=== PATIENT | female | born 1965 | race Caucasian/White ===

== ENCOUNTER 2018-04-21 05:00 | Inpatient (IN) ==
[2018-04-21] MEDS ORDERED: Bisacodyl 10 MG Supp RECTAL PRN (12:57)
[2018-04-21] MEDS ORDERED: Senna/Docusate Sodium 8.6/50 MG Tablet PO PRN (12:57)
[2018-04-21] MEDS ORDERED: Aluminum/Magnesium/Simethacone Susp 30 ML UDC PO PRN (12:57)
[2018-04-21 14:33] LABS: Hematocrit 36.3 % (35.0-46.0); Hemoglobin 12.7 gm/dL (11.6-15.3); Mean Corpuscular Hemoglobin 33.4 pg (27.0-34.0); Mean Corpuscular Volume 95.5 fL (80.0-100.0); Mean Platelet Volume 7.1 fL (7.0-11.0); Platelet Count 331 th/mm3 (150-450); Red Blood Count 3.81 mil/mm3 (4.00-5.30); Red Cell Distribution Width 13.6 % (11.6-17.2); White Blood Count 10.5 th/mm3 (4.0-11.0)
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
[2018-04-21] MEDS ORDERED: guaiFENesin/Dextromethorphan 200 MG/20 MG 10 ML UDC PO PRN (16:57)
--- NOTE | 2018-04-21 17:24 | P.CON ---
History of Present Illness Service: [facility] Consult date: 04/21/18 Requesting Physician: Favian De Paz Reason for Consult: Leukocytosis, Poss UTI Primary Care Provider: No Primary Care Physician History of Present Illness: This is a 53-year-old white female with significant past medical history of anxiety, depression, tobacco abuse, panic disorder, polysubstance abuse. Patient was transferred from [facility] under a Gallegos act. Patient thought someone was chasing her, was paranoid. Urine drug screen positive for methamphetamine and THC. Patient endorsed that she drinks 4-5 drinks weekly. During evaluation at [facility] emergency room on 04/20, she was noted with leukocytosis, WBC 17.3, UA with bacteriuria, negative for nitrates. Creatinine 1.26, sodium 141 and potassium 3.3. She received 1 L of normal saline and 1 g of Rocephin. Patient is now examined, denies any urinary symptoms. She has some nasal congestion and an occasional cough, no shortness of breath. Does have occasional chest discomfort associated with increased coughing. Indicates she has been smoking for many years. Denies any chest pain at this time, no shortness of breath, has some nasal congestion. No nausea , no vomiting, no diarrhea. She has been sleeping most of the day. Denies any visual, auditory hallucinations. Denies any suicidal ideation at this time. No HI. Hospitalist services are requested for assistance with medical management. Review of Systems All other systems reviewed negative except as stated in HPI PMFSH - History History Provided By: Patient - Medical History Medical History: Medical History (Last Reviewed 04/21/18 @ 17:09 by LIU Man) Anxiety Depression Panic attack Tobacco abuse - Surgical History Surgical History: Surgical History (Last Reviewed 04/21/18 @ 17:10 by LIU Man) No history of previous surgery - Family History Family History: Family History (Last Updated 04/21/18 @ 17:11 by LIU Mna) Mother Coronary artery disease Father Stroke - Tobacco History Second Hand Smoke Exposure: No Tobacco Use In Past 30 Days: Yes Smoking Status: Current every day smoker (1 pack a day for 40 yrs) Tobacco Type: Cigarettes - Alcohol History How Often Do You Have a Drink Containing Alcohol: 2 to 3 times a week - Substance Use History Substance History: Active Abuse (Methamphetamine, marijuana) - Substance Use Type Methamphetamine Status: Active Route Used: Inhalation Frequency: patient claims last use 4 days ago Comment: Patient declines substance use Medications and Allergies Active Medications: Active Medications Acetaminophen (Tylenol) 650 mg PO Q4H PRN PRN Reason: Pain 1-5 or Temp >101F Al Hydrox/Mg Hydrox/Simethicone (Mag-Al Plus Susp Liq) 30 ml PO Q6H PRN PRN Reason: DYSPEPSIA Al Hydroxide/Mg Hydroxide (Milk Of Magnesia Liq) 30 ml PO Q12H PRN PRN Reason: Mild Constipation Albuterol (Ventolin Hfa Inh) 2 puff INH Q6H PRN PRN Reason: SHORTNESS OF BREATH Bisacodyl (Dulcolax Supp) 10 mg RECTAL DAILY PRN PRN Reason: SEVERE CONSITIPATION Diphenhydramine HCl (Benadryl) 50 mg PO HS PRN PRN Reason: INSOMNIA Guaifenesin/Dextromethorphan (Robitussin Dm 200/20 Mg/10 Ml Liq) 10 ml PO Q6H PRN PRN Reason: COUGH Hydroxyzine HCl (Atarax) 50 mg PO Q6H PRN PRN Reason: ANXIETY Last Admin: 04/21/18 13:33 Dose: 50 mg Lactulose (Lactulose Liq) 30 ml PO DAILY PRN PRN Reason: SEVERE CONSITIPATION Nicotine (Habitrol 7 Mg Patch.24 Hr) 1 patch T-DERMAL DAILY AURELIA Patch Removal (Remove Old Patch) 1 each T-DERMAL HS AURELIA Quetiapine Fumarate (Seroquel) 50 mg PO HS AURELIA Senna/Docusate Sodium (Callie-Colace) 1 tab PO BID PRN PRN Reason: CONSTIPATION Sennosides (Senokot) 17.2 mg PO Q12H PRN PRN Reason: Moderate Constipation Allergies Allergy/AdvReac Type Severity Reaction Status Date / Time No Known Allergies Allergy Unverified 04/21/18 10:24 Physical Exam Vital signs: Vital Signs 04/21/18 09:37 Pulse Rate 92 H Respiratory Rate 16 Blood Pressure 110/58 L Pulse Oximetry 93 L Intake & Output 04/20/18 04/21/18 04/21/18 18:59 06:59 18:59 Weight 76.7 kg Other: Weight On Admission 76.7 kg Narrative: GENERAL: Well-nourished, well-developed patient in no apparent distress. SKIN: Warm and dry. HEAD: Atraumatic. Normocephalic. EYES: Pupils equal and round. No scleral icterus. No injection or drainage. ENT: No nasal bleeding or discharge. Mucous membranes pink and moist. Nasal congestion NECK: Trachea midline. No JVD. CARDIOVASCULAR: Regular rate and rhythm. RESPIRATORY: No accessory muscle use. Clear to auscultation. Breath sounds equal bilaterally. Dry nonproductive cough. GASTROINTESTINAL: Abdomen soft, non-tender, nondistended. Hepatic and splenic margins not palpable. MUSCULOSKELETAL: Extremities without clubbing, cyanosis, or edema. No obvious deformities. NEUROLOGICAL: Awakes to voice, oriented x3. No focal deficits. PSYCHIATRIC: Falls asleep, cooperative. Assessment and Plan - Plan 53-year-old white female but in under [place] act, she thought someone was chasing her. Urine drug screen positive for methamphetamine and THC. History of depression and anxiety. Was initially noted with leukocytosis, no fever, asymptomatic bacteriuria. Denies any fever, no chills, no urinary symptoms. Has a cough, feels congested. Psychosis, polysubstance abuse. Urine drug screen positive for methamphetamine and THC History of depression, anxiety, and panic disorder -per psychiatric management -Monitor for withdrawal symptoms Had initial leukocytosis on 04/20/2018, WBC 17.35. UA with bacteriuria, asymptomatic. Negative for nitrates. Received Rocephin Complaints of cough, feeling congested. -Repeat CBC We will hold off on initiating antibiotics at this time UA, UC pending -We will check a chest x-ray -Robitussin as needed Add Flonase 2 puffs daily -Duonebs PRN Dehydration, creatinine 1.26. Received 1 L normal saline -BMP in the morning -Encourage p.o. intake Tobacco abuse Counseling done Nicotine patch ordered No DVT prophylaxis needed, patient is ambulatory. Thank you for this consultation and for allowing us to participate in the care of this patient. Code Status: Full code Discussed Condition With: RN, patient Discharge Planning: Per primary care team
--- NOTE | 2018-04-21 18:10 | XR ---
EXAM DATE: 04/21/2018 12:00 AM EDT AGE/SEX: 53 years / Female INDICATIONS: Cough. CLINICAL DATA: This is the patient's initial encounter. Patient reports that signs and symptoms have been present for 3 days and indicates a pain score of 0/10. MEDICAL/SURGICAL HISTORY: None. None. COMPARISON: No prior exams available for comparison. FINDINGS: Trace bibasilar atelectasis. No pleural effusion or pneumothorax. Heart size normal. Mild tortuosity of the aorta. CONCLUSION: Minimal bibasilar atelectasis. Otherwise negative. Electronically signed by: Alexis Yip MD 04/21/2018 6:09 PM EDT
[2018-04-21] MEDS ORDERED: QUEtiapine 25 MG Tablet PO SCH (21:00)
[2018-04-22] MEDS: Acetaminophen 325 MG Tablet PO PRN (09:04)
[2018-04-22 09:10] LABS: Baso # (Auto) 0.1 th/mm3 (0.0-0.2); Baso % (Auto) 1.1 % (0.0-2.0); Eos # (Auto) 0.2 th/mm3 (0.0-0.4); Eos % (Auto) 2.9 % (0.0-4.0); Hematocrit 39.5 % (35.0-46.0); Hemoglobin 13.7 gm/dL (11.6-15.3); Lymph % (Auto) 46.7 % (9.0-44.0); Mean Corpuscular HGB Conc 34.8 % (32.0-36.0); Mean Corpuscular Hemoglobin 33.6 pg (27.0-34.0); Mean Corpuscular Volume 96.6 fL (80.0-100.0); Mean Platelet Volume 7.7 fL (7.0-11.0); Mono # (Auto) 0.5 th/mm3 (0.0-0.9); Mono % (Auto) 5.5 % (0.0-8.0); Neut # (Auto) 3.7 th/mm3 (1.8-7.7); Neut % (Auto) 43.8 % (16.0-70.0); Platelet Count 354 th/mm3 (150-450); Red Blood Count 4.09 mil/mm3 (4.00-5.30); Red Cell Distribution Width 13.7 % (11.6-17.2); White Blood Count 8.5 th/mm3 (4.0-11.0)
[2018-04-22 09:48] LABS: Calcium 8.8 mg/dL (8.5-10.1); Carbon Dioxide 23.9 meq/L (21.0-32.0); Potassium 3.4 meq/L (3.5-5.1)
[2018-04-22 10:00] LABS: Chol/HDL Ratio 3.17 Ratio; HDL Cholesterol 43.2 mg/dL (40.0-60.0); Thyroid Stimulating Hormone 1.23 uIU/mL (0.358-3.740)
--- NOTE | 2018-04-22 13:53 | P.TTN ---
- Patient Problems Problems: 1. Discharge planning 2. Medication compliance 3. Knowledge deficit 4. Lack of coping skills - Progress Toward Goals Provider Present: Dr. Cody Rodrigues, Dr. Karen De Paz Provider Input: Baldev- Patient is new admission, has home and family Nurse Input: Yuki- seclusive, cooperative , isolates to room, guarded, medication complaint Psychiatric Counselors Present: Julien Carbajal Jr., [facility], Other Group Spec/RT/OT/ROTH Present: Dina Munoz, GPS, Damián Dickson, OT Clinical Coordinator: Ness Oviedo [facility] - Documentation Teaching Recipient: Patient
--- NOTE | 2018-04-22 14:20 | P.PN ---
Subjective Interval history: follow up for leukocytosis, poss UTI, cough, sob: Pt. sleeping, awakes to voice , oriented x 3. Feels depressed, denies SI, HI. No hallucinations. Per nursing, has been in room most of the day. Eating and drinking fairly well. No CP, has some SOB which pt. states is chronic. Nasal allergies, refused Flonase this morning. No urinary symptoms. No fever. Physical Exam Vital signs: Vital Signs 04/21/18 17:07 04/22/18 05:57 Pulse Rate 72 61 Respiratory Rate 16 16 Blood Pressure 129/63 91/56 L Pulse Oximetry 92 L Intake & Output 04/21/18 04/22/18 04/22/18 18:59 06:59 18:59 Weight 76.7 kg Other: Weight On Admission 76.7 kg Narrative: GENERAL: Well-nourished, well-developed patient in no apparent distress. SKIN: Warm and dry. HEAD: Atraumatic. Normocephalic. EYES: Pupils equal and round. No scleral icterus. No injection or drainage. ENT: No nasal bleeding or discharge. Mucous membranes pink and moist. Nasal congestion NECK: Trachea midline. No JVD. CARDIOVASCULAR: Regular rate and rhythm. RESPIRATORY: No accessory muscle use. Clear to auscultation. Breath sounds equal bilaterally. Dry nonproductive cough. GASTROINTESTINAL: Abdomen soft, non-tender, nondistended. Hepatic and splenic margins not palpable. MUSCULOSKELETAL: Extremities without clubbing, cyanosis, or edema. No obvious deformities. NEUROLOGICAL: Awakes to voice, oriented x3. No focal deficits. PSYCHIATRIC: sad affect Results - Labs CBC & Chem 7: 04/22/18 08:11 04/22/18 08:11 Laboratory Results - last 24 hr 04/21/18 04/22/18 04/22/18 14:20 08:11 08:11 WBC 10.5 8.5 RBC 3.81 L 4.09 Hgb 12.7 13.7 Hct 36.3 39.5 MCV 95.5 96.6 MCH 33.4 33.6 MCHC 35.0 34.8 RDW 13.6 13.7 Plt Count 331 354 MPV 7.1 7.7 Neut % (Auto) 43.8 Lymph % (Auto) 46.7 H [place] % (Auto) 5.5 Eos % (Auto) 2.9 Baso % (Auto) 1.1 Neut # (Auto) 3.7 Lymph # (Auto) 4.0 [place] # (Auto) 0.5 Eos # (Auto) 0.2 Baso # (Auto) 0.1 WBC Differential . Differential Comment Auto diff final Sodium 143 Potassium 3.4 L Chloride 111 H Carbon Dioxide 23.9 Anion Gap 8 BUN 19 H Creatinine 1.20 H Estimated GFR 47 L Random Glucose 87 Calcium 8.8 Triglycerides 76 Cholesterol 137 LDL Cholesterol, Calc 79 HDL Cholesterol 43.2 Cholesterol/HDL Ratio 3.17 TSH 1.230 - Imaging Impressions Chest X-Ray 04/21/18 00:00 CONCLUSION: Minimal bibasilar atelectasis. Otherwise negative. Assessment and Plan - Plan 53-year-old white female but in under Gal[place]os act, she thought someone was chasing her. Urine drug screen positive for methamphetamine and THC. History of depression and anxiety. Was initially noted with leukocytosis, no fever, asymptomatic bacteriuria. Denies any fever, no chills, no urinary symptoms. Has a cough, feels congested. Psychosis, polysubstance abuse. Urine drug screen positive for methamphetamine and THC History of depression, anxiety, and panic disorder -per psychiatric management -Monitor for withdrawal symptoms Had initial leukocytosis on 04/20/2018, WBC 17.35. UA with bacteriuria, asymptomatic. Negative for nitrates. Received Rocephin Complaints of cough, feeling congested. -CBC reviewed, WBC 10.5 UA, UC pending -CXR reviewed, no acute findings. -Robitussin as needed Flonase 2 puffs daily -Duonebs PRN C/O SOB, occ CP -EKG ordered per psych team. -EKG reviewed, SR, prob old changes, inferior with posterior changes. No other EKG for comparison. -will check trop -add baby ASA Dehydration, creatinine 1.26. Received 1 L normal saline -Encourage p.o. intake -creat 1.2, unclear what her baseline is. Pt. poor historian. Enc. PO fluids -avoid nephrotoxic agents Tobacco abuse Counseling done Nicotine patch ordered No DVT prophylaxis needed, patient is ambulatory. Code Status: Full code Discussed Condition With: pt, RN, Dr. De Paz Discharge Planning: Per primary care team
[2018-04-22] MEDS ORDERED: Potassium Chloride 25 MEQ Effervescent Tablet PO ONE (15:00)
--- NOTE | 2018-04-22 15:14 | P.PNPSY ---
Subjective Remarks: Patient seen for follow up; chart reviewed. Discussion with nursing staff reported that patient seclusive, off her meals, continues to endorse auditory hallucinations and continues report feeling depressed and anxious but slept. Patient states that she has been sleeping "on and off" report mood continues to be depressed, and continues with auditory hallucinations but "not as bad". Patient continues to endorse suicide ideations at this time. Patient states having spoken to her yesterday which she states went well. Review of Systems All other systems reviewed negative except as stated in HPI Mental Status Examination Appearance: Disheveled Consciousness: Alert Orientation: Person, Place, Date/Time Speech: Unremarkable Language: Adequate Fund of Knowledge: Inadequate Attention and Concentration: Adequate Memory: Impaired (Regarding events prior to admission) Mood: Sad Affect: Sad Thought Process & Associations: Other ([place]) Thought Content: Hallucinations, Delusional Hallucination Type: Auditory Delusion Type: Paranoid Suicidal Ideation: Yes Suicidal Plan: No Suicidal Intention: No Homicidal Ideation: No Homicidal Plan: No Homicidal Intention: No Insight: Poor Judgment: Poor Assessment and Plan - Assessment (1) Unspecified psychosis Code(s): F29 - Unspecified psychosis not due to a substance or known physiological condition Status: Acute - Plan Plan: Patient this time continues to endorse depressed mood along with suicide ideations but reports is lessening along with auditory hallucinations. We will continue to titrate quetiapine 200 mg p.o. at bedtime for psychosis and mood stabilization. We will continue to monitor mood and behavior. Discharge planning in progress. Justification for Continued Inpatient Stay: At risk of further decompensation a lower level of care.
[2018-04-22 15:25] LABS: Bacteria,Urine Few /hpf; Bilirubin,Urine Negative (Negative); Clarity,Urine Cloudy (Clear); Color,Urine Amber (Yellw/Straw); Glucose,Urine (UA) Negative (Negative); Leukocyte Esterase,Urine Negative (Negative); Mucus,Urine Many /lpf (Occasional); Nitrite,Urine Negative (Negative); Specific Gravity,Urine 1.028 (1.002-1.035); Squamous Epithelial Cell,Urine 30 /hpf (0-5)
[2018-04-22 16:25] LABS: Hemoglobin A1c 5.9 % (4.3-6.0)
[2018-04-22] MEDS ORDERED: QUEtiapine 100 MG Tablet PO SCH (21:00)
[2018-04-23] MEDS: Acetaminophen 325 MG Tablet PO PRN ×2 (09:05→21:40)
--- NOTE | 2018-04-23 15:26 | ECG ---
Date Performed: 04/22/2018 Time Performed: 13:55:35 PTAGE: 53 years EKG: Sinus rhythm PROBABLE INFERIOR MYOCARDIAL INFARCTION , PROBABLY OLD WITH POSTERIOR EXTENSION ABNORMAL ECG NO PREVIOUS TRACING DOCTOR: Laina Ko Interpretating Date/Time 04/23/2018 15:24:30
--- NOTE | 2018-04-23 15:59 | P.PN ---
Subjective Interval history: follow up for leukocytosis, poss UTI, cough, sob: Pt. sleeping, awakes to voice , oriented x 3. Feels better, denies SI, HI. No hallucinations. Feels that she is ready to go home, "being here is not helping". No CP, no SOB, occ. cough and allergies. Taking Flonase now. Eating and drinking ok. Physical Exam Vital signs: Vital Signs 04/22/18 17:22 04/23/18 05:44 Temperature 98.4 F 96.5 F L Pulse Rate 61 70 Respiratory Rate 18 16 Blood Pressure 103/53 L 105/50 L Pulse Oximetry 96 95 Intake & Output 04/22/18 04/23/18 04/23/18 18:59 06:59 18:59 Weight 77.3 kg Narrative: GENERAL: Well-nourished, well-developed patient in no apparent distress. SKIN: Warm and dry. HEAD: Atraumatic. Normocephalic. EYES: Pupils equal and round. No scleral icterus. No injection or drainage. ENT: No nasal bleeding or discharge. Mucous membranes pink and moist. Nasal congestion NECK: Trachea midline. No JVD. CARDIOVASCULAR: Regular rate and rhythm. RESPIRATORY: No accessory muscle use. Clear to auscultation. Breath sounds equal bilaterally. Dry nonproductive cough. GASTROINTESTINAL: Abdomen soft, non-tender, nondistended. Hepatic and splenic margins not palpable. MUSCULOSKELETAL: Extremities without clubbing, cyanosis, or edema. No obvious deformities. NEUROLOGICAL: Awakes to voice, oriented x3. No focal deficits. PSYCHIATRIC: sad affect Results - Labs CBC & Chem 7: 04/22/18 08:11 04/22/18 08:11 Laboratory Results - last 24 hr 04/22/18 08:11 Hemoglobin A1c 5.9 Assessment and Plan - Plan 53-year-old white female but in under [place] act, she thought someone was chasing her. Urine drug screen positive for methamphetamine and THC. History of depression and anxiety. Was initially noted with leukocytosis, no fever, asymptomatic bacteriuria. Denies any fever, no chills, no urinary symptoms. Has a cough, feels congested. Psychosis, polysubstance abuse. Urine drug screen positive for methamphetamine and THC History of depression, anxiety, and panic disorder -per psychiatric management -Monitor for withdrawal symptoms Had initial leukocytosis on 04/20/2018, WBC 17.35. UA with bacteriuria, asymptomatic. Negative for nitrates. Received Rocephin Complaints of cough, feeling congested. -CBC reviewed, WBC 10.5 UA, no infection, no need for abx -CXR reviewed, no acute findings. -Robitussin as needed Flonase 2 puffs daily -Duonebs PRN C/O SOB, occ CP -EKG ordered per psych team. -EKG reviewed, SR, prob old changes, inferior with posterior changes. No other EKG for comparison. -Trop negative -cont baby ASA -d/w pt. has not had much Primary care follow up. Recommends she follow up as OP at [facility] or [facility]. Needs to stop smoking. Can benefit of work up as OP. Dehydration, creatinine 1.26. Received 1 L normal saline -Encourage p.o. intake -creat 1.2, unclear what her baseline is. Pt. poor historian. Enc. PO fluids -avoid nephrotoxic agents Tobacco abuse Counseling done Nicotine patch ordered No DVT prophylaxis needed, patient is ambulatory. Pt. stable, will sign off for now. Reconsult if needed. Code Status: Full code Discussed Condition With: RN, pt. Discharge Planning: Per primary care team
--- NOTE | 2018-04-23 16:29 | P.PNPSY ---
Subjective Remarks: Patient seen for follow up; chart reviewed. Discussion with nursing staff reported that patient noted to be depressed seclusive but denying suicidal ideations. Patient was found lying hospital bed noted with improved hygiene improved eye contact and more engaging interview today. Patient states that she had eating and drinking well, has been out more, reports her mood has being been "better" but denying any suicide ideations at this time. Patient denies any perceptional services, patient reports having spoken to her earlier this morning which she states he believes she is doing better. Patient states that she is ready to go home. Discussion of having patient engage in outpatient rehabilitation clinic was reviewed which she was amenable to engage in. Collateral information obtained by patient's which she had reported that patient has sad" in her right mind" but denying of any knowledge of patient engaging in any drug use. He mentions patient had history of previous drug use but none recently and believes that she is not engaged in this now. He denies at this time to have any safety concerns of patient returning back to his residence. We will plan for discharge tomorrow. Review of Systems All other systems reviewed negative except as stated in HPI Mental Status Examination Appearance: Appropriate Consciousness: Alert Orientation: Person, Place, Date/Time Speech: Unremarkable Language: Adequate Fund of Knowledge: Inadequate Attention and Concentration: Adequate Memory: Impaired (Regarding events prior to admission) Mood: Appropriate Affect: Sad (lessening) Thought Process & Associations: Intact, Linear Thought Content: Hallucinations, Delusional Hallucination Type: None Delusion Type: None Suicidal Ideation: No Suicidal Plan: No Suicidal Intention: No Homicidal Ideation: No Homicidal Plan: No Homicidal Intention: No Insight: Fair Judgment: Impulsive Assessment and Plan - Assessment (1) Unspecified psychosis Code(s): F29 - Unspecified psychosis not due to a substance or known physiological condition Status: Acute - Plan Plan: Patient noted with improvement in mood denying any suicide ideations, no longer endorsing any auditory hallucinations. We will continue current treatment, will increase quetiapine to 150 mg p.o. at bedtime for mood stabilization. Continue to monitor mood and behavior. Patient like for discharge tomorrow. Discharge planning in progress. Justification for Continued Inpatient Stay: At risk of further decompensation a lower level of care.
[2018-04-23] MEDS ORDERED: QUEtiapine 100 MG Tablet PO SCH (21:00)
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
[2018-04-24] MEDS: Acetaminophen 325 MG Tablet PO PRN (20:25)
[2018-04-24 22:10] VITALS: BP 105/58
[2018-04-25 05:41] VITALS: PULSE 73; RESP 18; TEMP 97.9; O2SAT 95
== END 2018-04-25 09:20 | disposition home or self-care (01) ==
LOC: H260 08:47
PROVIDERS: ADMIT Student in an Organized Health Care Education/Training Program; ATTEND Student in an Organized Health Care Education/Training Program